=== PATIENT | male | born 1995 | race Caucasian/White ===

== ENCOUNTER 2020-06-20 21:54 | Emergency (ER) | payer MEDICAID ==
[~2020-06-20] VITALS: Ht 172.7 cm; Wt 100.0 kg
[2020-06-20] MEDS ORDERED: DEXAMETHASONE 4MG/ML 1ML VIAL IV ONE (23:00)
[2020-06-20] MEDS ORDERED: DEXAMETHASONE 4MG/ML 1ML VIAL IM ONE (23:15)
[2020-06-20 23:56] VITALS: BP 140/89
== END 2020-06-20 23:57 | disposition home or self-care (01) ==
LOC: ER 21:54
DX: L50.0 Allergic urticaria (principal); R03.0 Elevated blood-pressure reading, without diagnosis of hypertension
CPT/HCPCS: 96372; 99283; J1100

== ENCOUNTER 2022-09-03 19:25 | Emergency (ER) | payer MEDICAID ==
[~2022-09-03] VITALS: Ht 172.7 cm; Wt 101.8 kg
[2022-09-03 19:46] VITALS: O2SAT 100
[2022-09-03] MEDS ORDERED: IBUP-2028 MT (21:29)
[2022-09-03 22:10] VITALS: BP 132/78; PULSE 89; RESP 14; TEMP 98
== END 2022-09-03 22:25 | disposition home or self-care (01) ==
LOC: ER 19:25
DX: S63.602A Unspecified sprain of left thumb, initial encounter (principal); X58.XXXA Exposure to other specified factors, initial encounter; Y93.89 Activity, other specified; Y92.89 Other specified places as the place of occurrence of the external cause; Y99.8 Other external cause status
CPT/HCPCS: 73140; 99283

== ENCOUNTER 2022-11-21 10:34 | Emergency (ER) | payer SELFPAY ==
[~2022-11-21] VITALS: Ht 172.7 cm; Wt 99.3 kg
[~2022-11-21 10:34] MED LIST: IBUP-2028 MT; NAPR-679 MT
[2022-11-21 11:03] VITALS: BP 133/86; PULSE 76; RESP 16; TEMP 98.7; O2SAT 98
== END 2022-11-21 12:47 | disposition home or self-care (01) ==
LOC: ER 10:34
DX: S01.511D Laceration without foreign body of lip, subsequent encounter (principal); X58.XXXD Exposure to other specified factors, subsequent encounter
CPT/HCPCS: 99281; Z7610